=== PATIENT | female | born 1995 | race Caucasian/White ===

== ENCOUNTER 2016-07-20 10:21 | Emergency (ER) | payer MEDICAID, OTHER ==
[2016-07-20 10:26] VITALS: RESP 16; TEMP 97.7; O2SAT 96
--- NOTE | 2016-07-20 10:52 | DX ---
Right wrist, 4 views. History: Wrist pain after fall. Pain with movement. Findings: There is be a subtle nondisplaced fracture in the mid waist of the scaphoid bone. Mild wide dorian of the scapholunate interval. Normal mineralization. Impression: Probable nondisplaced fracture mid waist of the scaphoid bone. Mild diastases at the scap holunate interval suggesting ligament injury.
--- NOTE | 2016-07-20 11:02 | EDPHY ---
H & P Stated Complaint: R wrist pain after fall last night HPI/ROS: Chief complaint: Right wrist injury History of present illness: This is a 20-year-old female who presents to the emergency department for right wrist injury. Patient reports last night she tripped and fell onto her wrist. Since then she has had pain in the wrist. It is worse with movement. She denies other associated signs or symptoms including no open wounds, no paresthesias and no abnormal coolness in the wrist. She denies trauma to other parts of the body. - Personal History LMP (Females 10-55): 8-14 Days Ago Current Tetanus Diphtheria and Acellular Pertussis (TDAP): Yes - Medical/Surgical History Hx Asthma: Yes Hx Chronic Respiratory Disease: No Hx Diabetes: No Hx Cardiac Disease: No Hx Renal Disease: No Hx Cirrhosis: No Hx Alcoholism: No Hx HIV/AIDS: No Hx Splenectomy or Spleen Trauma: No Other PMH: asthma - Social History Smoking Status: Never smoked - Physical Exam Exam: General: Alert, nontoxic Skin: No lesions consistent with trauma to the right upper extremity Musculoskeletal: Diffuse tenderness to the lateral aspect of the wrist. She does have pain ranging it. No tenderness to palpation of the hand, the rest of the forearm, elbow or upper arm. She can move all digits in the hand, the elbow and shoulder well. Vascular: Radial pulses 2+. Neurologic: Sensation intact throughout the right hand and arm Constitutional: Initial Vital Signs Temperature (C) 36.5 C 07/20/16 10:22 Heart Rate 84 07/20/16 10:22 Respiratory Rate 16 07/20/16 10:22 Blood Pressure 121/83 H 07/20/16 10:22 O2 Sat (%) 96 07/20/16 10:22 O2 Delivery Mode Room Air Allergies/Adverse Reactions: latex Allergy (Mild, Verified 07/20/16 10:27) contact dermatitis Home Medications: Medication Instructions Recorded Albuterol Hfa Anes Only [Proair 07/20/16 Hfa Icu (*)] Hydrocodone/APAP 5/325 [[place] 1 tab PO Q6H #6 tab 07/20/16 5/325 (*)] Medical Decision Making - Diagnostics Imaging: X-ray series of the right wrist is concerning for scaphoid fracture and scapholunate ligament injury Procedures: Procedure: Splint placement. A thumb spica splint was applied. After application of the splint I returned and re-examined the patient. The splint was adequately immobilizing the joint and distal to the splint the patient's circulation and sensation was intact. ED Course/Re-evaluation: Patient seen under the supervision of my secondary supervising physician Dr. Brayden Duarte. Patient presents to the emergency department for a right wrist injury. There is concern for a scaphoid fracture and scapholunate ligament injury. The hand is neurovascularly intact. It is splinted. No evidence by history or physical exam of trauma to other parts of the body. She is discharged home. Home care is discussed including pain medication but avoiding NSAIDs given injury location. She is referred to a hand doctor for further evaluation and care. Strict return precautions are given. Patient voiced understanding and agreement with plan. Differential Diagnosis: Included but not limited to contusion, sprain or strain, fracture Departure - Departure Disposition: Home, Routine, Self-Care Clinical Impression: Wrist fracture Qualifiers: Encounter type: initial encounter Fracture type: closed Laterality: right Qualifier Code: (S62.101A) Fracture of unspecified carpal bone, right wrist, initial encounter for closed fracture Condition: Good Instructions: Scaphoid Fracture (ED) Additional Instructions: Follow-up with a hand doctor this week for recheck In addition you have been prescribed [place] for pain. [place] contains Tylenol, do not take extra Tylenol/acetaminophen/Apap with it. It is sedating. If symptoms worsen or new symptoms develop return to the emergency department for recheck Referrals: OUT OF STATE,. [Primary Care Provider] - As per Instructions Feliciano Horton MD [Medical Doctor] - As per Instructions Prescriptions: Hydrocodone/APAP 5/325 [[place] 5/325 (*)] 1 tab PO Q6H #6 tab
[2016-07-20 11:10] VITALS: BP 119/80; PULSE 82
== END 2016-07-20 11:29 | disposition home or self-care (01) ==
DX: S62.101A Fracture of unspecified carpal bone, right wrist, initial encounter for closed fracture (principal); J45.909 Unspecified asthma, uncomplicated; Z91.040 Latex allergy status; W01.0XXA Fall on same level from slipping, tripping and stumbling without subsequent striking against object, initial encounter